=== PATIENT | female | born 1985 | race Caucasian/White ===

== ENCOUNTER 2017-12-20 18:42 | Emergency (ER) | payer OTHER ==
[2017-12-20 19:29] LABS: URINE HCG POC HCG NEGATIVE (Negative)
[2017-12-20] MEDS: IV NORMAL SALINE 1000ML BAG 1,000 ML IV (19:34)
[2017-12-20] MEDS: ONDANSETRON PF 4 MG/2 ML VIAL. IV ×2 (19:34→23:28)
[2017-12-20] MEDS: MORPHINE SULFATE 4 MG/ML DISP.SYRIN. IV ×2 (19:35→23:29)
[2017-12-20] MEDS: FAMOTIDINE 20 MG/2 ML VIAL IVP (19:35)
[2017-12-20 19:40] LABS: BASO % 0 % (0-3); EOS % 0 % (0-3); HEMOGLOBIN 14.1 g/dL (12.0-15.5); LYMPH # 1.2 x10^3/uL (1.0-4.8); LYMPH % 9 % (24-48); MEAN CORPUSCULAR HEMOGLOBIN 31 pg (25-35); MEAN CORPUSCULAR HGB CONC 34 g/dL (31-37); MEAN CORPUSCULAR VOLUME 89 fL (79-100); MONO # 0.6 x10^3/uL (0.0-1.1); MONO % 5 % (0-9); NEUT # 10.6 x10^3uL (1.8-7.7); NEUT % 85 % (31-73); PLATELET COUNT 268 x10^3/uL (140-400); RED CELL DISTRIBUTION WIDTH 15.6 % (11.5-14.5); WHITE BLOOD COUNT 12.5 x10^3/uL (4.0-11.0)
[2017-12-20 19:42] LABS: ADD MAN DIFF? YES
[2017-12-20 19:51] LABS: ANION GAP 12 (6-14); BLOOD UREA NITROGEN 12 mg/dL (7-20); BUN/CREATININE RATIO 15 (6-20); CALCIUM 9.6 mg/dL (8.5-10.1); CARBON DIOXIDE 25 mmol/L (21-32); CHLORIDE 103 mmol/L (98-107); CREATININE 0.8 mg/dL (0.6-1.0); GFR 82.6; GLUCOSE 127 mg/dL (70-99); POTASSIUM 3.9 mmol/L (3.5-5.1); SODIUM 140 mmol/L (136-145)
[2017-12-20 19:52] LABS: NEG OBC SER NEG; POS OBC SER POS; PREG TEST PT QUAL NEGATIVE (NEG)
[2017-12-20 19:56] LABS: ALBUMIN 3.6 g/dL (3.4-5.0); ALBUMIN/GLOBULIN RATIO 0.8 (1.0-1.7); ALK PHOS 134 U/L (46-116); ALT (SGPT) 27 U/L (14-59); AST (SGOT) 25 U/L (15-37); LIPASE 64 U/L (73-393); TOTAL BILIRUBIN 0.8 mg/dL (0.2-1.0)
[2017-12-20 20:32] LABS: % LYMPHS 8 % (24-48); % MONOS 2 % (0-10); % SEGS 90 % (35-66); OVALOCYTES OCC; PLT ESTIMATE ADEQUATE (ADEQUATE); POLYCHROMASIA SLIGHT
[2017-12-20] MEDS: PROMETHAZINE 12.5 MG in IV DEXTROSE 5% 50 ML IV (20:52)
== END 2017-12-21 00:03 | disposition home or self-care (01) ==
LOC: ER 12-21 00:03
DX: R10.13 Epigastric pain (principal); R11.2 Nausea with vomiting, unspecified; F17.210 Nicotine dependence, cigarettes, uncomplicated; Z88.0 Allergy status to penicillin
CPT/HCPCS: 36415; 80053; 81025; 83690; 84703; 85007; 85025; 93005; 96361; 96365; 96375; 96376; 99285-25; J2270; J2405; J2550; J7030; S0028